=== PATIENT | female | born 1960 | race Caucasian/White ===

== ENCOUNTER 2018-09-02 05:33 | Day surgery (SDC) | payer OTHER ==
[~2018-09-02] VITALS: Ht 175.3 cm; Wt 113.4 kg
--- NOTE | ~2018-09-02 | EKG ---
[address] [address] ELECTROCARDIOGRAM REPORT Name: LORI NGO Room #: 150-7 [facility]..#: [id number] Admission: 09/02/18 Attend Phys: Will Lee MD Discharge: Date of : 60 Report #: [id number] THIS REPORT FOR: //name// [facility] Test Date: 2018-09-02 Test Time: 08:58:37 Pat Name: LORI NGO Department: Room: 150 7 Gender: F Install Technician: BRITTANY : 1960 Requested By: Will Lee Order Number: [id number] MD: Simba Nash Measurements Intervals [place] Rate: 58 P: 46 OR: 195 QRS: -4 QRSD: 105 T: 16 QT: 426 QTc: 419 Interpretive Statements Sinus rhythm Normal No previous ECG available for comparison Electronically Signed On 09-02-2018 14:43:26 [employer] by Simba Nash [email or web address] <ELECTRONICALLY SIGNED> By: Simba Nash MD, [facility] 09/02/18 1443 [id number] [id number] Simba Nash MD, FACC /EPI
--- NOTE | ~2018-09-02 | O ---
[facility] [address] [place] [address] OPERATIVE REPORT Name: LORI NGO Room #: 150-7 [facility] M.R.#: [id number] Admission: 09/02/18 Attend Phys: Will Lee MD Discharge: Date of : 60 Report #: [id number] THIS REPORT FOR: //name// CC: Osito Lee DATE OF SERVICE: 09/02/2018 PREOPERATIVE DIAGNOSIS: Tail of parotid tumor. POSTOPERATIVE DIAGNOSIS: Tail of parotid tumor. OPERATIVE PROCEDURE: Partial parotidectomy without facial nerve dissection. ANESTHESIA: General by laryngeal mask. DESCRIPTION OF PROCEDURE: The patient was taken to the operating room and placed in supine position. General anesthesia was induced by laryngeal mask. Once adequate general anesthesia was obtained, local anesthesia was induced by subcutaneous infiltration of 1% lidocaine with 1:100,000 epinephrine. The patient was then prepared and draped in a sterile manner. The patient had a tumor in the tail of the parotid on the right side. An incision was placed in the upper right neck 2 fingerbreadths below the mandible down through skin and subcutaneous tissue and through the platysma muscle. The mass was located and was circumferentially dissected off of the parotid fascia. It actually seemed to be separate from the parotid fascia and was dissected upward into the tail of the parotid gland and transected through a small amount of parotid tissue. The specimen was sent to pathology for permanent analysis. The area was then checked for hemostasis. The platysma was closed with 4-0 Vicryl suture, the subcutaneous tissue was closed with 4-0 Vicryl suture and the skin was closed with 5-0 Prolene suture. Blood loss was minimal. The patient was then awoken and taken to the recovery room in stable condition for postoperative monitoring. By: [id number] Will Lee MD /nt
--- NOTE | ~2018-09-02 | H ---
[facility] [place] [address] HISTORY AND PHYSICAL Name: LORI NGO Room #: 150-7 [facility] M.R.#: [id number] Admission: 09/02/18 Attend Phys: Will Lee MD Discharge: Date of : 60 Report #: [id number] THIS REPORT FOR: //name// CC: Osito Lee Her procedure is scheduled for 09/02. HISTORY OF PRESENT ILLNESS: The patient has a tail of parotid mass on the right side. She felt as though it was coming and going and a needle biopsy was obtained, which showed a possible mucocele. She is having more discomfort in the area, and it seemed to be getting slightly larger. PAST MEDICAL HISTORY: Otherwise, significant for asthma and allergies. MEDICATIONS: Include Zocor, glucosamine, vitamins. ALLERGIES: No known drug allergies. PHYSICAL EXAMINATION: She has a firm lesion of the tail of the parotid gland on the right side that is freely mobile and almost palpates as though it is separate from the parotid gland. There were no other masses or adenopathy palpated. 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 PLAN: Partial parotidectomy without facial nerve dissection. <ELECTRONICALLY SIGNED> By: Will Lee MD 09/02/18 0826 [id number] [id number] Will Lee MD /nt
--- NOTE | ~2018-09-02 | PATH ---
[facility] [address] [place] [address] PATHOLOGY RPT PROCEDURE Name: JENILORICHELSY SHIRLEY Room #: DEP [facility] M.R.#: [id number] Admission: 09/02/18 Date of : 60 Discharge: 09/02/18 Report #: [id number] Path Case #: [id number] [facility] Accession Number: [id number] . 01 Material submitted: . RIGHT PARTIAL PAROTID . 01 Clinical history: . Parotid tumor . 02 Diagnosis: Soft tissue nodule "right partial parotid", parotidectomy: - Well circumscribed fibrohistiocytic lesion approximating the inked margins. - See comment. LBQ/09/07/2018 . 02 Comment: The nodule is fairly well circumscribed and consists of a fibrohistiocytic lesion admixed with abundant lymphocytes. The differential includes an inflamed fibrohistiocytic nodule containing fibrous tissue, histiocytes, some multinucleated admixed with abundant lymphocytes. . There is no evidence of atypia or malignancy. The acid fast and fungal stains are both negative. The trichrome reveals abundant fibrous tissue. . . Immunoperoxidase stains: S100 - Negative AE1/AE3 - Negative SMA stains vessels CD68 - Positive CD45 - Positive Desmin - Negative P63 - Negative . Based on the immunoperoxidase stains this is a fibrohistiocytic lesion most secondary to inflammation. It has a somewhat appearance of a nodular fascitis. No salivary gland tissue is identified to suggest a primary salivary gland tumor. . This case is also reviewed by two pathologists, Dr. Pao Inman and Dr. Lilo Cabrera. (SHA/db; 09/07/2018) . 02 Electronically signed: . Tank Dennison MD, Pathologist [address] [address] PATHOLOGY RPT PROCEDURE Name: LORI NGO Room #: DEP [facility] M..#: [id number] Admission: 09/02/18 Date of : 60 Discharge: 09/02/18 Report #: [id number] Path Case #: [id number]- [id number] . 01 Gross description: . The specimen is received in formalin, labeled "Lori Ngo, right partial parotid". Received is a 1 g segment of light reddy soft tissue measuring 2.2 x 1.3 x 0.7 cm in greatest dimensions. The specimen is inked black. Sectioning reveals yellow-reddy, homogenous cut surfaces throughout. The specimen is submitted entirely in cassettes A1 and A2. (CAA; 09/03/2018) QAC/QAC . 02 Pathologist provided ICD-10: K11.8 . 02 CPT . 106117, 655995, H16648, G95233, [id number] Specimen Comment: A courtesy copy of this report has been sent to Specimen Comment: [phone], . Specimen Comment: Report sent to / DR HUGHES Performed at: [address], [place] [id number] MD Chintan Linton MD Phone: [phone] Performed at: [address] [id number] MD Carlee Doyle MD Phone: [phone]
[~2018-09-02 05:33] MED LIST: ESTER-C 500 MG1 EACH PO; FENOFIBRATE160 MG PO; FIBER500 MG PO; FISH OIL 1,001000 M2 PO; FLAX OIL1000 MG PO; GLUCOSAMINE &1 EACH PO; METFORMIN HCL500 MG PO; MULTIVITAMINS PO; SIMVASTATIN40 MG PO
[2018-09-02 09:17] VITALS: BP 130/65
== END 2018-09-02 12:35 | disposition home or self-care (01) ==
LOC: OR 05:33 → TBA 05:33 → OR 11:46
DX: D11.0 Benign neoplasm of parotid gland (principal); E11.9 Type 2 diabetes mellitus without complications; E78.00 Pure hypercholesterolemia, unspecified; G47.33 Obstructive sleep apnea (adult) (pediatric); J45.909 Unspecified asthma, uncomplicated; Z98.890 Other specified postprocedural states; Z79.899 Other long term (current) drug therapy
CPT/HCPCS: 50010; 50101; 50386; 50398; 56524; 56526; 56528; 57006; 62110; 62900; 64037; 70005